=== PATIENT | male | born 1980 | race Caucasian/White ===

== ENCOUNTER → 2020-02-17 | Outpatient (CLI) | payer OTHER ==
[2020-02-17] VITALS (8 sets, daily range): BP systolic 17–129; BP diastolic 55–88
[~2020-02-17] VITALS: Ht 172.7 cm; Wt 81.2 kg
[~2020-02-17] MED LIST: FLEXERIL PO; MEDROL DOSPAK21 TA1 PO; PERCOCET 5-3251 EACH PO
[2020-02-17 10:08] LABS: HEMATOCRIT 47.2 % (42.0-52.0); HEMOGLOBIN 16.2 gm/dL (14.0-18.0); MCH 32.3 pg (26.0-34.0); MCHC 34.3 g/dL (28.0-37.0); MCV 94.2 fL (80.0-100.0); MPV 7.5 fl. (7.2-11.1); RBC 5.01 mil/uL (4.50-6.00); RDW-CV 13.1 % (10.5-14.5); WBC 9.8 thou/uL (4.0-11.0)
[2020-02-17 10:18] LABS: ANION GAP 8 mmol/L (7-16); BUN 14 mg/dL (7-18); CALCIUM 8.9 mg/dL (8.5-10.1); CHLORIDE 104 mmol/L (98-107); CO2 27 mmol/L (21-32); GLUCOSE 96 mg/dL (70-99); POTASSIUM 4.2 mmol/L (3.5-5.1); SODIUM 139 mmol/L (136-145)
[2020-02-17 10:23] LABS: ALKALINE PHOSPHATASE 88 U/L (46-116); CHOLESTEROL 226 mg/dL (<200); HDL CHOLESTEROL 37 mg/dL (>40); LDL CHOLESTEROL 161 mg/dL (<100); SERUM ASSESSMENT Clear; SGOT 26 U/L (15-37); SGPT 44 U/L (30-65); TC:HDL 6.1 Ratio (Not establshd); TOTAL BILIRUBIN 0.6 mg/dL (<0.1-1.0); TRIGLYCERIDE 142 mg/dL (<150); VLDL 28 mg/dL (<40)
[2020-02-17 10:30] LABS: APTT 25.2 Seconds (25.0-31.3)
[2020-02-17 11:05] LABS: PROTIME 10.3 Seconds (9.20-11.50)
--- NOTE | 2020-02-17 14:27 | EKG ---
[place] [address] ELECTROCARDIOGRAM REPORT Name: JANA ALTAMIRANO II Room: [facility]#: [id number] Admission: 02/17/20 Attend Phys: Edgard Rubio MD Discharge: Date of : 82 Date of Service: 02/17/20 1013 Report #: [id number] THIS REPORT FOR: //name// [facility] Test Date: 2020-02-17 Test Time: 10:13:52 Pat Name: JANA ALTAMIRANO Department: Room: Gender: M Bilingual Hr Generalist: : 1980 Requested By: Edgard Rubio Order Number: [id number] Reading MD: Edgard Rubio Measurements Intervals [place] Rate: 72 P: -16 IA: 168 QRS: 2 QRSD: 85 T: 45 QT: 389 QTc: 426 Interpretive Statements Sinus rhythm No previous ECG available for comparison Electronically Signed On 02-17-2020 14:26:57 TUCK POINTER HELPER by Edgard Rubio [email or web address] <ELECTRONICALLY SIGNED> By: Edgard Rubio MD, [facility] 02/17/20 1426 1013 1013 Edgard Rubio MD, FAC /EPI
--- NOTE | 2020-02-17 17:01 | CARD ---
[address] [address] CARDIAC CATH REPORT Name: TOMESTHERJANA SUSHANT CROW [id number] Admission: 02/17/20 Attend Phys: Edgard Rubio MD, F Discharge: Date of : 82 Report #: [id number] THIS REPORT FOR: //name// cc: ISI - No family physician/PCP ISI - No family physician/PCP ~ APPROVED REPORT Study performed: 02/17/2020 10:51:17 Patient Details Patient Status: Out-Patient Room #: The patient is a 39 year-old male Event Personnel Edgard Rubio Arc Welder Apprentice, Dinh Martinez RN Line Production Cook, Pelon Ruiz RTR Scrub, Alicia Luciano RTR Monitor Procedures Performed Art Access - R radial artery, Left Heart Cath w/or w/o Coronaries LHC, Supravalvular Aortography Injection ISVA, Hemostasis with Vasc band Indication Valvular heart disease Risk Factors Tobacco History () Admission/Lab Medications/Medications given during procedure Heparin Unfract., Nitroglycerin IA 400 mcg, Verapamil IA 5 mg, Heparin IV 4000 units Procedure Narrative The patient was brought electively to the Cardiac Catheterization Laboratory and was prepped and draped in a sterile manner. The right wrist was infiltrated with 2% Lidocaine subcutaneous anesthesia. A 6F [place] sheath was inserted into the right radial artery. Coronary angiography was performed using coronary diagnostic catheters. The right coronary system was accessed and visualized with a 6F JR4 catheter. The left coronary system was accessed and visualized with a 5F [place] 4.0 catheter. The left ventricle was accessed and visualized with a 6F Straight [place] catheter. Left ventricular/Aortic Valve gradient assessed via catheter pullback. Left ventriculogram was performed in [place] [address] CARDIAC CATH REPORT Name: JANA ALTAMIRANO II Room: [facility]#: [id number] Admission: 02/17/20 Attend Phys: Edgard Rubio MD, F Discharge: Date of : 82 Report #: [id number] the ascending aorta was performed. Closure device was deployed with a 6 Fr Vasc-Band Reg 24cm. The patient tolerated the procedure well and there were no complications associated with the procedure. There was no hematoma. Unable to cannulate left main with JL4, JL5, nor Amplatz left I catheter. Intraoperative Conscious Sedation Sedation start time: 11:10 Case end Time: 11:51 Fentanyl 50 mcg Versed 6 mg Fluoro Time: 11.8 minutes Dose: DAP 82738 cGycm2 1453 mGy Contrast Type and Amount: Visipaque 170 ml Coronary Angiography The patient's coronary anatomy is co- dominant. [place] Artery Percent Stenosis Left Main: 0 % Prox LAD: 0 % Mid/Distal LAD: 60 % Circumflex: 0 % RCA: 0 % Ramus: % Left Ventriculography The left ventricle is normal in size with normal contractility. The left ventricular ejection fraction is estimated to be 50-55%. Left ventricular wall motion abnormalities are not present. There is no mitral insufficiency. Aortic root injection revealed mildy dilated aortic root with moderate aortic insufficiency. Hemodynamics The aortic pressure is 106/68 mmHg with a mean of 81 mmHg. The left ventricular pressure is 109/8 mmHg with a mean of mmHg. The left ventricular end diastolic pressure is 8 mmHg. There was no gradient across the aortic valve upon pullback. Pullback from the left ventricle to the aorta revealed no gradient across the aortic valve. Conclusion 1. 60% stenosis noted in the mid lad 2. LVEF 50-55% 3. [place] [address] CARDIAC CATH REPORT Name: JANA ALTAMIRANO II Room: [facility]#: [id number] Admission: 02/17/20 Attend Phys: Edgard Rubio MD, F Discharge: Date of : 82 Report #: [id number] Recommendations repeat echo in 1 year <ELECTRONICALLY SIGNED> By: Edgard Rubio MD, [facility] 02/17/201699 99 1700David Leia Rubio MD, FACC /INF
== END ==
LOC: M.CL 09:00
PROVIDERS: ATTEND Internal Medicine Cardiovascular Disease
DX: R07.1 Chest pain on breathing (principal); I35.1 Nonrheumatic aortic (valve) insufficiency; R01.1 Cardiac murmur, unspecified; E78.00 Pure hypercholesterolemia, unspecified; F17.210 Nicotine dependence, cigarettes, uncomplicated; Z72.89 Other problems related to lifestyle; Z79.899 Other long term (current) drug therapy; Z98.890 Other specified postprocedural states; Z20.828 Contact with and (suspected) exposure to other viral communicable diseases